=== PATIENT | male | born 2000 | race American Indian/Alaskan Native ===

== ENCOUNTER 2019-04-06 14:03 | Emergency (ER) | payer MEDICAID ==
--- NOTE | 2019-04-06 14:42 | Emergency Department Report ---
Blank Doc - Documentation Documentation: This is a 19-year-old male that presents with URI symptoms and left ear draina ge. This initial assessment/diagnostic orders/clinical plan/treatment(s) is/are subject to change based on patient's health status, clinical progression and re- assessment by fellow clinical providers in the ED. Further treatment and workup at subsequent clinical providers discretion. Patient/guardians urged not to elope from the ED as their condition may be serious if not clinically assessed and managed. Initial orders include: 1- Patient sent to [facility] for further evaluation and treatment 2- CXR
[2019-04-06 14:44] VITALS: BP 166/68
--- NOTE | 2019-04-06 15:00 | XRay Report ---
ROUTINE CHEST, TWO VIEWS: HISTORY: Cough. The trachea, heart, mediastinal contour, lung kearney and bony thorax are unremarkable. IMPRESSION: Unremarkable chest x-ray.
--- NOTE | 2019-04-06 18:11 | Emergency Department Report ---
Minor Respiratory - HPI Chief Complaint: Upper Respiratory Infection Stated Complaint: CONGESTION/L EAR INFECTION Time Seen by Provider: 04/06/19 14:41 Duration: 3 Days Pain Location: Nose Severity: moderate Minor Respiratory: Yes Rhinorrhea, Yes Able to Tolerate Fluids, Yes Ear Pain (last year, draining), Yes Cough, No Sore Throat, No Sick Contacts, No Hemoptysis, No Chest Pain, No Shortness of Breath, No Fever Other History: 19-year-old male with a history of chronic ear infection presents with left ear drainage with coughing and nasal congestion 3-4 days. Patient is here with his mother. Denies fevers/chills/nausea vomiting ED Review of Systems ROS: Stated complaint: CONGESTION/L EAR INFECTION Other details as noted in HPI Comment: All other systems reviewed and negative ED Past Medical Hx - Past Medical History Previous Medical History?: Yes Additional medical history: Down's syndrome - Surgical History Past Surgical History?: Yes Additional Surgical History: PDA repair, TNA 12/2000 - Social History Smoking Status: Never Smoker Substance Use Type: None - Medications Home Medications: Home Medications Medication Instructions Recorded Confirmed Last Taken Type Clindamycin [Clindamycin CAP] 300 mg PO BID #20 cap 04/06/19 Unknown Rx Ofloxacin 0.3% [Floxin 0.3% Otic] 1 - 2 drops OT TID #1 bottle 04/06/19 Unknown Rx Minor Respiratory Exam - Exam General: Vital signs noted. No distress. Alert and acting appropriately. HEENT: Yes Moist Mucous Membranes, No Pharyngeal Erythema, No Pharyngeal Exudates, No Rhinorrhea, No Conjuctival Injection, No Frontal Tenderness, No Maxillary Tenderness Ear: Left EAC Discharge (tube in ear), Neither TM Bulge, Neither TM Erythema, Neither EAC Pain Neck: Yes Supple, No Adenopathy Lungs: Yes Good Air Exchange, No Wheezes, No Ronchi, No Stridor, No Cough, No Labored Respirations, No Retractions, No Use of Accessory Muscles, No Other Abnormal Lung Sounds Heart: Yes Regular, No Murmur Abdomen: Yes Normal Bowel Sounds, No Tenderness, No Peritoneal Signs Skin: No Rash, No Edema Neurologic: Alert and oriented, no deficits. Musculoskeletal: Unremarkable. ED Course Vital Signs 04/06/19 14:42 Temperature 97.7 F Pulse Rate 113 H Respiratory 24 Rate Blood Pressure 166/68 O2 Sat by Pulse 96 Oximetry ED Medical Decision Making - Radiology Data Radiology results: report reviewed, image reviewed Ordering Physician: PING MALDONADO NP Date of Service: 04/06/19 Procedure(s): XR chest routine 2V Accession Number(s): [id number] cc: PING MALDONADO NP Fluoro Time In Minutes: ROUTINE CHEST, TWO VIEWS: HISTORY: Cough. The trachea, heart, mediastinal contour, lung kearney and bony thorax are unremarkable. IMPRESSION: Unremarkable chest x-ray. Transcribed By: TTR Dictated By: BLANCA DANIEL JR, MD Electronically Authenticated By: BLANCA DANIEL JR, MD Signed Date/Time: 04/06/19 1128 - Medical Decision Making 19-year-old male presents with otitis externa left ear Chest x-ray negative. Discussed findings with the mother and patient. Follow-up disease control inspector/primary care physician in 3- 5 days Critical care attestation.: If time is entered above; I have spent that time in minutes in the direct care of this critically ill patient, excluding procedure time. ED Disposition Clinical Impression: Otitis, URI with cough and congestion Disposition: DC-01 TO HOME OR SELFCARE Is pt being admited?: No Does the pt Need Aspirin: No Condition: Stable Instructions: Otitis Externa (ED), Otitis Media (ED) Additional Instructions: Make sure to follow up with the primary care physician as discussed. Take all your medications as you've been prescribed. If you have any worsening symptoms or develop new symptoms please return to ED immediately. Prescriptions: Clindamycin [Clindamycin CAP] 300 mg PO BID #20 cap Ofloxacin 0.3% [Floxin 0.3% Otic] 1 - 2 drops OT TID #1 bottle Referrals: [facility] [Provider Group] - 3-5 Days Forms: Accompanied Note, Work/School Release Form(ED) Time of Disposition: 18:40
== END 2019-04-06 18:57 | disposition home or self-care (01) ==
LOC: ED 14:03
DX: J06.9 Acute upper respiratory infection, unspecified (principal); H66.92 Otitis media, unspecified, left ear; Q90.9 Down syndrome, unspecified; Z88.1 Allergy status to other antibiotic agents; Z88.8 Allergy status to other drugs, medicaments and biological substances; Z98.890 Other specified postprocedural states; Z96.22 Myringotomy tube(s) status
CPT/HCPCS: 71046; 99283

== ENCOUNTER 2019-06-21 09:53 | Emergency (ER) | payer MEDICAID ==
[2019-06-21 10:11] VITALS: BP 143/83
[2019-06-21] MEDS ORDERED: XYLOCAINE 1% MPF 5 mL ONE (15:48)
--- NOTE | 2019-06-21 17:10 | Emergency Department Report ---
Abscess Boil HPI - HPI Chief Complaint: Skin/Abscess/Foreign Body Stated Complaint: INFECTED ABSCESS History: Yes Fever, Yes Pain, Yes Purulent Drainage, No Numbness, No Foreign Body, No Previous History, No Insect Bite HPI: 19 M mentally delayed pt presents with mother, she states that he has an abscess of his buttocks that has caused pain and is draining. The abscess began 4 days ago. She stated that she has tried sitz baths and some relief was achieved but it has not completely drained. He rated the pain a 6. Home Medications: Previous Rx's Medication Instructions Recorded Last Taken Type Clindamycin [Clindamycin CAP] 300 mg PO BID #20 cap 04/06/19 Unknown Rx Ofloxacin 0.3% [Floxin 0.3% Otic] 1 - 2 drops OT TID #1 bottle 04/06/19 Unknown Rx Clindamycin [Clindamycin CAP] 300 mg PO Q8H 10 Days #30 cap 06/21/19 Unknown Rx Ibuprofen [Motrin 600 MG tab] 600 mg PO Q8H PRN 7 Days #21 tablet 06/21/19 Unknown Rx Allergies/Adverse Reactions: Allergies Allergy/AdvReac Type Severity Reaction Status Date / Time amoxicillin [From Augmentin] Allergy Unknown Verified 04/06/19 14:05 clavulanic acid Allergy Unknown Verified 04/06/19 14:05 [From Augmentin] ED Review of Systems ROS: Stated complaint: INFECTED ABSCESS Other details as noted in HPI Constitutional: denies: chills, fever Eyes: denies: eye pain, eye discharge, vision change ENT: denies: ear pain, throat pain Respiratory: denies: cough, shortness of breath, wheezing Cardiovascular: denies: chest pain, palpitations Endocrine: no symptoms reported Gastrointestinal: denies: abdominal pain, nausea, diarrhea Genitourinary: denies: urgency, dysuria Musculoskeletal: denies: back pain, joint swelling, arthralgia Skin: as per HPI Neurological: denies: headache, weakness, paresthesias Psychiatric: denies: anxiety, depression Hematological/Lymphatic: denies: easy bleeding, easy bruising ED Past Medical Hx - Past Medical History Additional medical history: Down's syndrome - Surgical History Past Surgical History?: Yes Additional Surgical History: PDA repair, TNA 12/2000 - Social History Smoking Status: Never Smoker Substance Use Type: None - Medications Home Medications: Home Medications Medication Instructions Recorded Confirmed Last Taken Type Clindamycin [Clindamycin CAP] 300 mg PO BID #20 cap 04/06/19 Unknown Rx Ofloxacin 0.3% [Floxin 0.3% Otic] 1 - 2 drops OT TID #1 bottle 04/06/19 Unknown Rx Clindamycin [Clindamycin CAP] 300 mg PO Q8H 10 Days #30 cap 06/21/19 Unknown Rx Ibuprofen [Motrin 600 MG tab] 600 mg PO Q8H PRN 7 Days #21 tablet 06/21/19 Unknown Rx ED Abscess Boil Physical Exam - Exam General: Vital signs noted. No distress. Alert and acting appropriately. Exam: Yes Tenderness, Yes Fluctuance, Yes Surrounding Cellulites/Erythema, No Heart Murmur Exam: Large painful erythematous fluctuant mass at the gluteal cleft with white discharge present I & D Note - I & D Note I & D Note: Attempt made but patient was agressive and obstinate. Therefore the attempt was unsuccessful. ED Course Vital Signs 06/21/19 10:08 Temperature 100.3 F H Pulse Rate 99 H Respiratory 24 Rate Blood Pressure 143/83 O2 Sat by Pulse 99 Oximetry Critical care attestation.: If time is entered above; I have spent that time in minutes in the direct care of this critically ill patient, excluding procedure time. ED Medical Decision Making - Medical Decision Making 19 M mentally delayed pt presents with mother, she states that he has an abscess of his buttocks that has caused pain and is draining. The abscess began 4 days ago. She stated that she has tried sitz baths and some relief was achieved but it has not completely drained. He rated the pain a 6. An attempt was made to drain the pilonidal cyst, but it was unsuccessful due to the pt being aggressive and obstinate. Pt was given a course of antibiotics, NSAIDs and a referral to general surgery. His mother verbalized understanding and agreed with the plan of care. ED Disposition Clinical Impression: Pilonidal abscess Disposition: DC-01 TO HOME OR SELFCARE Is pt being admited?: No Does the pt Need Aspirin: No Condition: Stable Instructions: Abscess (ED) Additional Instructions: Pt will be started on antibiotics, NSAIDs, and will be referred to general surgery. Prescriptions: Clindamycin [Clindamycin CAP] 300 mg PO Q8H 10 Days #30 cap Ibuprofen [Motrin 600 MG tab] 600 mg PO Q8H PRN 7 Days #21 tablet PRN Reason: Pain Referrals: XAVI MEJIA DO [Staff Physician] - 3-5 Days Forms: Work/School Release Form(ED) Time of Disposition: 17:34 ED General adult EXAM - General General appearance: alert, in no apparent distress Limitations: No Limitations - Head Head exam: Positive: atraumatic - Eye Eye exam: normal appearance Pupils: Positive: normal accommodation - ENT ENT exam: Positive: normal exam, normal orophraynx - Neck Neck exam: Positive: normal inspection, full ROM - Respiratory Respiratory exam: Positive: normal lung sounds bilaterally, respiratory distress, chest wall tenderness - Cardiovascular Cardiovascular Exam: Positive: regular rate, normal heart sounds - GI/Abdominal GI/Abdominal exam: Positive: soft, distended, tenderness - Rectal Rectal exam: Positive: other (large painful erythematous fluctuant mass at the gluteal cleft) - Extremities Extremities exam: Positive: normal inspection - Back Back exam: normal inspection, full ROM - Neurological Neurological exam: Positive: alert, altered, oriented X3 - Psychiatric Psychiatric exam: Positive: other (mentally delayed) - Skin Skin exam: Positive: warm, dry
[2019-06-21] MEDS ORDERED: XYLOCAINE 1% MPF 5 mL INFILTRATI ONE (17:56)
== END 2019-06-21 17:44 | disposition home or self-care (01) ==
LOC: ED 09:53
DX: L05.01 Pilonidal cyst with abscess (principal); Z88.1 Allergy status to other antibiotic agents; Z88.8 Allergy status to other drugs, medicaments and biological substances; Z79.899 Other long term (current) drug therapy; Z79.1 Long term (current) use of non-steroidal anti-inflammatories (NSAID)
CPT/HCPCS: 99282

== ENCOUNTER 2019-07-24 07:49 | Outpatient (CLI) | payer MEDICAID ==
[2019-07-24] MEDS ORDERED: LIDOCAINE (4%) 40 MG/ML TOPICAL SOLN 50 ML BOTTLE TP ONE (08:30)
== END 2019-07-24 07:50 | disposition home or self-care (01) ==
LOC: WOUND 07:49
PROVIDERS: ATTEND Surgery
DX: T81.89XA Other complications of procedures, not elsewhere classified, initial encounter (principal); F41.9 Anxiety disorder, unspecified; Q90.9 Down syndrome, unspecified; Z95.2 Presence of prosthetic heart valve; Y83.8 Other surgical procedures as the cause of abnormal reaction of the patient, or of later complication, without mention of misadventure at the time of the procedure; Y92.89 Other specified places as the place of occurrence of the external cause
CPT/HCPCS: 11042; G0463; 99214

== ENCOUNTER 2019-08-02 08:54 | Outpatient (CLI) | payer MEDICAID ==
[2019-08-02] MEDS ORDERED: SILVER NITRATE APPLICATOR 1 EA TP ONE (09:30)
[2019-08-02] MEDS ORDERED: LIDOCAINE (4%) 40 MG/ML TOPICAL SOLN 50 ML BOTTLE TP ONE (09:30)
== END 2019-08-02 08:55 | disposition home or self-care (01) ==
LOC: WOUND 08:54
PROVIDERS: ATTEND Surgery
DX: T81.89XD Other complications of procedures, not elsewhere classified, subsequent encounter (principal); S31.809A Unspecified open wound of unspecified buttock, initial encounter; Q90.9 Down syndrome, unspecified; X58.XXXA Exposure to other specified factors, initial encounter; Y93.89 Activity, other specified; Y92.89 Other specified places as the place of occurrence of the external cause; Y99.8 Other external cause status; Y83.8 Other surgical procedures as the cause of abnormal reaction of the patient, or of later complication, without mention of misadventure at the time of the procedure

== ENCOUNTER 2019-08-09 08:45 | Outpatient (CLI) | payer MEDICAID ==
[2019-08-09] MEDS ORDERED: XYLOCAINE TOPICAL 4% TP ONE (09:08)
[2019-08-09] MEDS ORDERED: SILVER NITRATE TP ONE (09:19)
== END 2019-08-09 08:46 | disposition home or self-care (01) ==
LOC: WOUND 08:45
PROVIDERS: ATTEND Surgery
DX: T81.89XD Other complications of procedures, not elsewhere classified, subsequent encounter (principal); S31.809D Unspecified open wound of unspecified buttock, subsequent encounter; Q90.9 Down syndrome, unspecified; X58.XXXD Exposure to other specified factors, subsequent encounter

== ENCOUNTER 2019-08-21 08:40 | Outpatient (CLI) | payer MEDICAID ==
[2019-08-21] MEDS ORDERED: SILVER NITRATE APPLICATOR 1 EA TP ONE (09:30)
[2019-08-21] MEDS ORDERED: LIDOCAINE (4%) 40 MG/ML TOPICAL SOLN 50 ML BOTTLE TP ONE (09:30)
== END 2019-08-21 08:41 | disposition home or self-care (01) ==
LOC: WOUND 08:40
PROVIDERS: ATTEND Surgery
DX: T81.89XD Other complications of procedures, not elsewhere classified, subsequent encounter (principal); S31.809D Unspecified open wound of unspecified buttock, subsequent encounter; Q90.9 Down syndrome, unspecified; X58.XXXD Exposure to other specified factors, subsequent encounter; Y83.8 Other surgical procedures as the cause of abnormal reaction of the patient, or of later complication, without mention of misadventure at the time of the procedure
CPT/HCPCS: 17250; G0463; 99213

== ENCOUNTER 2019-08-28 08:49 | Outpatient (CLI) | payer MEDICAID | END 2019-08-28 08:50 | disposition home or self-care (01) | LOC: WOUND 08:49 | PROVIDERS: ATTEND Surgery | DX: T81.89XD Other complications of procedures, not elsewhere classified, subsequent encounter (principal); Q90.9 Down syndrome, unspecified; Y83.8 Other surgical procedures as the cause of abnormal reaction of the patient, or of later complication, without mention of misadventure at the time of the procedure | CPT/HCPCS: 99214; G0463 ==

== ENCOUNTER 2019-10-02 09:13 | Outpatient (CLI) | payer MEDICAID | END 2019-10-02 09:14 | disposition home or self-care (01) | LOC: WOUND 09:13 | PROVIDERS: ATTEND Surgery | DX: T81.89XD Other complications of procedures, not elsewhere classified, subsequent encounter (principal); Q90.9 Down syndrome, unspecified; Y83.8 Other surgical procedures as the cause of abnormal reaction of the patient, or of later complication, without mention of misadventure at the time of the procedure | CPT/HCPCS: 99213; G0463 ==

== ENCOUNTER 2020-08-29 13:45 | Emergency (ER) | payer MEDICAID ==
--- NOTE | 2020-08-29 13:49 | Event Note ---
ED Screening Note Date of service: 08/29/20 Time: 13:48 ED Screening Note: Patient complains of rectal bleeding and abdominal pain Scheduled to have abdominal hernia repair on September 16 This initial assessment/diagnostic orders/clinical plan/treatment(s) is/are subject to change based on patients health status, clinical progression and re- assessment by fellow clinical providers in the ED. Further treatment and workup at subsequent clinical providers discretion. Patient/guardian urged not to elope from the ED as their condition may be serious if not clinically assessed and managed. Initial orders include: Main ED
[2020-08-29 14:31] LABS: Basophils # (Auto) 0.1 K/mm3 (0.0-0.1); Basophils % (Auto) 1.1 % (0.0-1.8); Eosinophils # (Auto) 0.1 K/mm3 (0.0-0.4); Eosinophils % (Auto) 0.6 % (0.0-4.3); Hematocrit 39.8 % (35.5-45.6); Hemoglobin 13.2 gm/dl (11.8-15.2); Lymphocytes # (Auto) 2.8 K/mm3 (1.2-5.4); Lymphocytes % (Auto) 31.7 % (13.4-35.0); Mean Corpuscular HGB Conc 33 % (32-34); Mean Corpuscular Volume 93 fl (84-94); Monocytes # (Auto) 0.7 K/mm3 (0.0-0.8); Monocytes % (Auto) 7.9 % (0.0-7.3); Platelet Count 356 K/mm3 (140-440); Red Blood Count 4.26 M/mm3 (3.65-5.03); Red Cell Distribution Width 16.2 % (13.2-15.2)
[2020-08-29 14:42] LABS: INR 1.08 (0.87-1.13)
[2020-08-29 14:56] LABS: Alanine Aminotransferase 34 units/L (7-56); Albumin 3.7 g/dL (3.9-5); BUN/Creatinine Ratio 14; Blood Urea Nitrogen 14 mg/dL (9-20); Calcium 9.2 mg/dL (8.4-10.2); Hemolysis Index 4
--- NOTE | 2020-08-29 15:39 | Emergency Department Report ---
ED GI Bleed HPI - General Chief complaint: GI Bleed Stated complaint: BLOOD IN STOOL Time Seen by Provider: 08/29/20 13:48 Source: patient Mode of arrival: Ambulatory Limitations: No Limitations - History of Present Illness Initial comments: 20-year-old male with history of Down syndrome, abdominal wall hernia, presents to ED with GI bleed. Mother is present at bedside. States patient has had 2 episodes of bleeding. The first was on yesterday in which patient's aunt noticed blood on the tissue after patient wiped following bowel movement. Today, mother noticed some blood mixed in with stool when he had a bowel movement. Patient is scheduled for hernia repair next week. She spoke with patient's surgeon, Dr. Denis, who advised her to come to the ED to rule out any sort of perforation. Patient has not been complaining of any increased abd ominal pain. States patient has pain secondary to his hernia. Mother states patient has been eating normally. Denies any vomiting. MD complaint: blood on toilet paper, blood streaked stool -: days(s) (2) Quality: painless Consistency: intermittent Improves with: none Worsens with: bowel movement Associated Symptoms: denies: nausea, vomiting, fever/chills, loss of appetite - Related Data Home Medications Medication Instructions Recorded Confirmed Last Taken ALBUTEROL NEB's [Proventil 0.083% 2.5 mg IH TID PRN 07/10/19 07/10/19 Unknown NEBS] Albuterol Sulfate [Proventil Hfa] 6.7 gm IH Q4H PRN 07/10/19 07/10/19 Unknown Fluticasone [Flonase] 1 spray NS QDAY 07/10/19 07/10/19 Unknown Multivit-Minerals/Folic Acid 0.4 mg PO QDAY 07/10/19 07/10/19 Unknown [Adult One Daily Multivit Tab] raNITIdine HCl [Zantac] 150 mg PO QDAY 07/10/19 07/10/19 Unknown Previous Rx's Medication Instructions Recorded Last Taken Type HYDROcodone/APAP 5-325 [Lynn 1 each PO Q6HR PRN #15 tablet 07/11/19 Unknown Rx 5/325] Ibuprofen [Motrin 800 MG tab] 800 mg PO Q8HR PRN #30 tablet 07/11/19 Unknown Rx Allergies Allergy/AdvReac Type Severity Reaction Status Date / Time amoxicillin [From Augmentin] Allergy Unknown Verified 08/29/20 13:45 clavulanic acid Allergy SOB, Hives Verified 08/29/20 13:45 [From Augmentin] ED Review of Systems ROS: Stated complaint: BLOOD IN STOOL Other details as noted in HPI Comment: All other systems reviewed and negative Constitutional: denies: fever Gastrointestinal: abdominal pain. denies: vomiting, constipation ED Past Medical Hx - Past Medical History Hx GERD: Yes Hx Sickle Cell Disease: No Hx Asthma: Yes (RESCUE INHALER AND NEBS) Hx HIV: No Additional medical history: Down's syndrome - Surgical History Additional Surgical History: PDA repair, TNA 12/2000 - Social History Smoking Status: Never Smoker Substance Use Type: None - Medications Home Medications: Home Medications Medication Instructions Recorded Confirmed Last Taken Type ALBUTEROL NEB's [Proventil 0.083% 2.5 mg IH TID PRN 07/10/19 07/10/19 Unknown Hi story NEBS] Albuterol Sulfate [Proventil Hfa] 6.7 gm IH Q4H PRN 07/10/19 07/10/19 Unknown Hi story Fluticasone [Flonase] 1 spray NS QDAY 07/10/19 07/10/19 Unknown History Multivit-Minerals/Folic Acid 0.4 mg PO QDAY 07/10/19 07/10/19 Unknown History [Adult One Daily Multivit Tab] raNITIdine HCl [Zantac] 150 mg PO QDAY 07/10/19 07/10/19 Unknown History HYDROcodone/APAP 5-325 [Lynn 1 each PO Q6HR PRN #15 tablet 07/11/19 Unknown Rx 5/325] Ibuprofen [Motrin 800 MG tab] 800 mg PO Q8HR PRN #30 tablet 07/11/19 Unknown Rx ED Physical Exam - General Limitations: No Limitations General appearance: alert, in no apparent distress - Head Head exam: Present: atraumatic, normocephalic - Eye Eye exam: Present: normal appearance, EOMI - ENT ENT exam: Present: mucous membranes moist - Neck Neck exam: Present: normal inspection - Respiratory Respiratory exam: Present: normal lung sounds bilaterally. Absent: respiratory distress - Cardiovascular Cardiovascular Exam: Present: regular rate, normal rhythm - GI/Abdominal GI/Abdominal exam: Present: soft, hernia. Absent: distended, tenderness - Extremities Exam Extremities exam: Present: normal inspection - Neurological Exam Neurological exam: Present: alert, other (At baseline per mother) - Psychiatric Psychiatric exam: Present: normal affect, normal mood - Skin Skin exam: Present: warm, dry, intact, normal color ED Course Vital Signs 08/29/20 08/29/20 08/29/20 13:46 15:43 16:41 Temperature 98.3 F Pulse Rate 90 76 Respiratory 20 18 20 Rate Blood Pressure 168/66 132/57 O2 Sat by Pulse 97 98 Oximetry 08/29/20 16:45 Temperature 98.3 F Pulse Rate 76 Respiratory 20 Rate Blood Pressure O2 Sat by Pulse 98 Oximetry ED Medical Decision Making - Lab Data Result diagrams: 08/29/20 14:11 08/29/20 14:11 - Radiology Data Radiology results: report reviewed, image reviewed - Medical Decision Making Patient with no active bleeding at this time. Hemoglobin normal. Vital signs stable. CT only shows existing hernia, no incarceration or strangulation. Outpatient follow-up advised. Return precautions given. Critical care attestation.: If time is entered above; I have spent that time in minutes in the direct care of this critically ill patient, excluding procedure time. ED Disposition Clinical Impression: GI bleed, Ventral hernia without obstruction or gangrene Disposition: DC-01 TO HOME OR SELFCARE Is pt being admited?: No Condition: Stable Instructions: Gastrointestinal Bleeding Referrals: PRIMARY CAREMD [Primary Care Provider] - 3-5 Days [facility] [Provider Group] - 3-5 Days Forms: Accompanied Note
--- NOTE | 2020-08-29 16:23 | Cat Scan Report ---
CT ABDOMEN AND PELVIS WITH CONTRAST INDICATION / CLINICAL INFORMATION: GI bleed, hx hernia. TECHNIQUE: Axial CT images were obtained through the abdomen and pelvis after 100 cc Omnipaque 300 milligrams pe rcent IV contrast. All CT scans at this location are performed using CT dose reduction for ALARA by means of automated exposure control. COMPARISON: None available. FINDINGS: Exam is somewhat limited secondary to patient's body habitus LOWER CHEST: No significant abnormality. LIVER: Diffuse fatty infiltration of the liver is present. GALLBLADDER: No significant abnormality. BILE DUCTS: No significant abnormality. PANCREAS: No significant abnormality. SPLEEN: No significant abnormality. ADRENALS: No significant abnormality. RIGHT KIDNEY and URETER: No significant abnormality. LEFT KIDNEY and URETER: No significant abnormality. STOMACH and SMALL BOWEL: No significant abnormality. COLON: No significant abnormality. APPENDIX: No significant abnormality. PERITONEUM: Large ventral wall defects present with herniation of gastrointestinal contents without e vidence of obstruction or strangulation. LYMPH NODES: No significant adenopathy. AORTA and ARTERIES: No significant abnormality. IVC and VEINS: No significant abnormality. URINARY BLADDER: No significant abnormality. REPRODUCTIVE ORGANS: No significant abnormality. ADDITIONAL FINDINGS: None. SKELETAL SYSTEM: No significant abnormality. IMPRESSION: 1. Ventral wall defect with herniation of gastrointestinal contents 2. Hepatic steatosis Signer Name: Paresh Lee MD Signed: 08/29/2020 4:19 PM Workstation Name: [id number]
[2020-08-29 16:44] VITALS: BP 132/57
== END 2020-08-29 16:44 | disposition home or self-care (01) ==
LOC: ED 13:45
DX: K43.9 Ventral hernia without obstruction or gangrene (principal); K92.2 Gastrointestinal hemorrhage, unspecified; K21.9 Gastro-esophageal reflux disease without esophagitis; J45.909 Unspecified asthma, uncomplicated; Z98.890 Other specified postprocedural states; Z79.1 Long term (current) use of non-steroidal anti-inflammatories (NSAID); Z79.899 Other long term (current) drug therapy; Z88.1 Allergy status to other antibiotic agents; Z88.8 Allergy status to other drugs, medicaments and biological substances
CPT/HCPCS: 36415; 74177; 80053; 85025; 85610; 85730; 99284; Q9967